=== PATIENT | male | born 1985 ===

== ENCOUNTER 2018-06-02 01:14 | Emergency (ER) | payer SELFPAY ==
[~2018-06-02] VITALS: Ht 188 cm; Wt 127.0 kg
[2018-06-02] MEDS ORDERED: IBUPROFEN 800 MG TABLET ONE (01:30)
[2018-06-02] MEDS ORDERED: IBUPROFEN 800 MG TABLET PO ONE (01:30)
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
--- NOTE | 2018-06-02 03:15 | NUR ---
Patient discharged to home in stable conditon. Written and verbal after care instructions given. Patient verbalizes understanding of instructions. PT D/C WITH L SHOULDER SLING. PT SELF-AMBULATED WITHOUT DIFFICULTY. ALL BELONGINGS W/ PT. PT D/C HOME WITH PRESCRIPTION. WILL BE DRIVEN HOME BY FRIEND IN PRIVATE VEHICLE.
[2018-06-02 03:21] VITALS: BP 145/70
== END 2018-06-02 03:22 | disposition home or self-care (01) ==
LOC: ER 01:17
DX: S29.9XXA Unspecified injury of thorax, initial encounter (principal); S49.92XA Unspecified injury of left shoulder and upper arm, initial encounter; I10 Essential (primary) hypertension; E11.9 Type 2 diabetes mellitus without complications; V43.62XA Car passenger injured in collision with other type car in traffic accident, initial encounter; Y93.89 Activity, other specified; Y92.410 Unspecified street and highway as the place of occurrence of the external cause; Y99.8 Other external cause status
CPT/HCPCS: 71045; 71120; 73020; 99284; A4663